=== PATIENT | male | born 1955 | race Caucasian/White ===

== ENCOUNTER 2017-03-13 13:49 | Emergency (ER) | payer BC, OTHER ==
[~2017-03-13] VITALS: Ht 182.9 cm; Wt 96.0 kg
[~2017-03-13 13:49] MED LIST: CARDURA4 MG PO; COUMADIN,JANTOVE2 MG PO; COUMADIN,JANTOVE5 MG PO; EFFEXOR XR75 MG PO; KEPPRA XR500 MG PO; KEPPRA1000 MG PO; KEPPRA500 MG PO; TRILEPTAL; VIMPAT200 MG PO
[2017-03-13] MEDS ORDERED: XARELTO20 MG PO (14:31)
[2017-03-13] MEDS ORDERED: CITALOPRAM HBR20 MG PO (14:31)
[2017-03-13] MEDS ORDERED: FENOFIBRATE160 M1 PO (14:32)
[2017-03-13] MEDS ORDERED: APTIOM800 MG PO (14:32)
[2017-03-13] MEDS ORDERED: LEVETIRACETAM500 MG PO (14:33)
[2017-03-13] MEDS ORDERED: PHENYTOIN50 MG PO (14:33)
[2017-03-13 14:46] LABS: POINT-OF-CARE METER ID UU13113778
[2017-03-13 14:56] LABS: HEMATOCRIT 43.1 % (38.0-50.0); MCH 29.6 PG (29.0-34.0); MCHC 34.3 G/DL (30.0-36.0); MCV 86.2 FL (86-99); MEAN PLAT.VOLUME 9.6 uM^3 (9.0-12.4); PLATELET COUNT 195 K/uL (156-360); RBC DIS.WIDTH-CV 12.1 % (11.8-14.6); RBC DIS.WIDTH-SD 38.4 % (39-53); WHITE BLOOD COUNT 8.2 K/uL (4.1-10.2)
[2017-03-13 15:04] LABS: CHLORIDE 105 mEq/L (99-109); SODIUM 139 mEq/L (136-147)
[2017-03-13 15:06] LABS: GLUCOSE 104 mg/dL (70-99)
[2017-03-13 15:07] LABS: ANION GAP 8 MEQ/L (2-14)
[2017-03-13 15:08] LABS: TOTAL BILIRUBIN 0.5 mg/dL (0.0-1.0)
[2017-03-13 15:10] LABS: ALKALINE PHOSPHATASE 45 IU/L (3-129); GFR ESTIMATE (CALCULATED) > 59 mL/min/
[2017-03-13 15:11] LABS: UREA NITROGEN (BUN) 28 mg/dL (9-23)
[2017-03-13 15:13] LABS: LIPASE 19 U/L (1.0-51.0)
[2017-03-13 15:17] LABS: TROP-I INTERPRETATION NEGATIVE; TROPONIN-I < 0.01 ng/mL (0.0-0.30)
[2017-03-13 15:49] LABS: ADD MIUA? YES; BILIRUBIN NEGATIVE; BLOOD SMALL; COLOR DK YELLOW ((YELLOW)); GLUCOSE (STRIP) NEGATIVE; KETONES 5; LEUKOCYTES NEGATIVE; NITRITE NEGATIVE; PROTEIN (STRIP) 30; SPECIFIC GRAVITY 1.034 (1.000-1.030)
[2017-03-13 15:55] LABS: BACTERIA RARE /HPF; EPITHELIAL CELLS RARE /HPF; HYALINE CASTS 0-5 /LPF; MUCUS 4+ /LPF; UCUL ADDED? NO; WHITE BLOOD CELLS 0-5 /HPF (0-5)
[2017-03-13] MEDS ORDERED: ZOFRAN ODT4 MG PO (16:15)
[2017-03-13 16:22] VITALS: BP 122/83
== END 2017-03-13 16:23 | disposition home or self-care (01) ==
LOC: EME 13:49
PROVIDERS: Physician Assistant Medical
DX: E86.0 Dehydration (principal); R11.2 Nausea with vomiting, unspecified; R10.9 Unspecified abdominal pain; R56.9 Unspecified convulsions; I10 Essential (primary) hypertension; Z86.718 Personal history of other venous thrombosis and embolism; Z79.01 Long term (current) use of anticoagulants
CPT/HCPCS: 80053; 80185; 81003; 82948; 83690; 84484; 85027; 93005; 99281; 99285; J2405; J7030